=== PATIENT | female | born 1990 | race American Indian/Alaskan Native ===

== ENCOUNTER 2017-03-17 18:45 | Emergency (ER) | payer SELFPAY ==
[2017-03-17 19:51] VITALS: BP 111/79
[2017-03-17 22:11] LABS: Bilirubin,Urine NEG (Negative); Blood,Urine NEG (Negative); Ketones,Urine NEG (Negative); Leukocyte Esterase,Urine TR (Negative); Nitrite,Urine NEG (Negative); Protein,Urine <15 mg/dL mg/dL (Negative); Urobilinogen,Urine < 2.0 mg/dL (<2.0)
[2017-03-17 22:12] LABS: WBC,Urine < 1.0 /HPF (0.0-6.0)
== END 2017-03-17 20:35 | disposition left against medical advice (07) ==
LOC: ED 18:45
DX: R11.2 Nausea with vomiting, unspecified (principal); Z53.21 Procedure and treatment not carried out due to patient leaving prior to being seen by health care provider
CPT/HCPCS: 81001

== ENCOUNTER 2017-06-02 07:21 | Emergency (ER) | payer OTHER ==
[2017-06-02 08:11] LABS: Bacteria,Urine 1+ /HPF (Negative); Bilirubin,Urine NEG (Negative); Blood,Urine NEG (Negative); Ketones,Urine NEG (Negative); Leukocyte Esterase,Urine SM (Negative); Mucus,Urine FEW /HPF; Nitrite,Urine NEG (Negative); Protein,Urine <15 mg/dL mg/dL (Negative)
[2017-06-02 08:20] LABS: Basophils % (Auto) 0.5 % (0.0-1.8); Eosinophils % (Auto) 0.4 % (0.0-4.3); Hematocrit 35.4 % (30.3-42.9); Hemoglobin 12.3 gm/dl (10.1-14.3); Mean Corpuscular HGB Conc 35 % (30-34); Mean Corpuscular Hemoglobin 30 pg (28-32); Mean Corpuscular Volume 87 fl (79-97); Platelet Count 252 K/mm3 (140-440); Red Blood Count 4.08 M/mm3 (3.65-5.03); Red Cell Distribution Width 13.4 % (13.2-15.2); White Blood Count 6.6 K/mm3 (4.5-11.0)
[2017-06-02 08:41] LABS: Alanine Aminotransferase 8 units/L (7-56); Albumin 3.5 g/dL (3.9-5); Albumin/Globulin Ratio 1.3 %; Alkaline Phosphatase 39 units/L (35-129); Anion Gap 14 mmol/L; BUN/Creatinine Ratio 10; Blood Urea Nitrogen 5 mg/dL (7-17); Calcium 8.7 mg/dL (8.4-10.2); Carbon Dioxide 24 mmol/L (22-30); Chloride 101.9 mmol/L (98-107); Glucose 81 mg/dL (65-100); Lipase 17 units/L (13-60); Potassium 4.1 mmol/L (3.6-5.0); Sodium 136 mmol/L (137-145); Total Protein 6.2 g/dL (6.3-8.2)
--- NOTE | 2017-06-02 12:09 | Emergency Department Report ---
ED Abdominal Pain HPI - General Chief Complaint: Abdominal Pain Stated Complaint: , CRAMPS Time Seen by Provider: 06/02/17 12:02 Source: patient Mode of arrival: Ambulatory Limitations: No Limitations - History of Present Illness Initial Comments: Patient complains of lower abdominal discomfort. It appears to be in mild to moderate in intensity. It is intermittent. It into triage she complained of some epigastric pain and mostly pressure in her lower abdomen for a day. She denies epigastric pain to me now. I think this was very transient. She's had no nausea vomiting or diarrhea. She's had hyperemesis during this but this is largely resolved with medicines she tells me. She is under the care of an OB doctor at [facility]. She denies any recent fever or chills and had no diarrhea. She denies other symptoms. She has not notified her OB doctor of her symptoms as of yet. MD Complaint: abdominal pain -: Gradual, hour(s) Location: LLQ, RLQ Radiation: none Migration to: no migration Severity scale (0 -10): 5 Quality: aching Consistency: intermittent, now resolved Improves With: nothing Worsens With: nothing Associated Symptoms: denies other symptoms - Related Data Allergies Allergy/AdvReac Type Severity Reaction Status Date / Time No Known Allergies Allergy Verified 03/17/17 19:52 ED Review of Systems ROS: Stated complaint: , CRAMPS Other details as noted in HPI Constitutional: denies: chills, fever Eyes: denies: eye pain, eye discharge, vision change ENT: denies: ear pain, throat pain Respiratory: denies: cough, shortness of breath, wheezing Cardiovascular: denies: chest pain, palpitations Endocrine: no symptoms reported Gastrointestinal: abdominal pain. denies: nausea, diarrhea Genitourinary: denies: urgency, dysuria, discharge Musculoskeletal: denies: back pain, joint swelling, arthralgia Skin: denies: rash, lesions Neurological: denies: headache, weakness, paresthesias Psychiatric: denies: anxiety, depression Hematological/Lymphatic: denies: easy bleeding, easy bruising ED Past Medical Hx - Past Medical History Previous Medical History?: No Additional medical history: hyperemesis d/t - Surgical History Past Surgical History?: No - Social History Smoking Status: Never Smoker Substance Use Type: None ED Physical Exam - General Limitations: No Limitations General appearance: alert, in no apparent distress - Head Head exam: Present: atraumatic, normocephalic - Eye Eye exam: Present: normal appearance. Absent: scleral icterus - ENT ENT exam: Present: mucous membranes moist - Neck Neck exam: Present: normal inspection - Respiratory Respiratory exam: Present: normal lung sounds bilaterally. Absent: respiratory distress - Cardiovascular Cardiovascular Exam: Present: regular rate, normal rhythm. Absent: systolic murmur, diastolic murmur, rubs, gallop - GI/Abdominal GI/Abdominal exam: Present: soft, normal bowel sounds, other (uterus is consistent with dates). Absent: tenderness, guarding, rebound, rigid - Extremities Exam Extremities exam: Present: normal inspection - Back Exam Back exam: Present: normal inspection. Absent: CVA tenderness (R), CVA tenderness (L) - Neurological Exam Neurological exam: Present: alert, oriented X3, CN II-XII intact. Absent: motor sensory deficit - Psychiatric Psychiatric exam: Present: normal affect, normal mood - Skin Skin exam: Present: warm, dry, intact, normal color. Absent: rash ED Course Vital Signs 06/02/17 06/02/17 06/02/17 07:33 10:50 12:22 Temperature 98.6 F 98.9 F 98.4 F Pulse Rate 86 78 80 Respiratory 18 16 22 Rate Blood Pressure 96/65 Blood Pressure 96/65 101/62 120/66 [Left] O2 Sat by Pulse 98 94 100 Oximetry - Reevaluation(s) Reevaluation #1: Patient was comfortable here in the emergency department. She did not complain of any significant pain. She was counseled as to the results of her tests and ultrasound which are all reassuring. She is appropriate for follow-up with her OB doctor. Perhaps she is having some round ligament stretch but doesn't seem to be having any acute issue at this time. 06/02/17 16:08 ED Medical Decision Making - Lab Data Result diagrams: 06/02/17 08:06 06/02/17 08:06 Laboratory Results - last 24 hr 06/02/17 06/02/17 06/02/17 07:47 08:06 08:06 WBC 6.6 RBC 4.08 Hgb 12.3 Hct 35.4 MCV 87 MCH 30 MCHC 35 H RDW 13.4 Plt Count 252 Lymph % (Auto) 30.2 [place] % (Auto) 7.5 H Eos % (Auto) 0.4 Baso % (Auto) 0.5 Lymph # 2.0 [place] # 0.5 Eos # 0.0 Baso # 0.0 Seg Neutrophils % 61.4 Seg Neutrophils # 4.0 Sodium 136 L Potassium 4.1 Chloride 101.9 Carbon Dioxide 24 Anion Gap 14 BUN 5 L Creatinine 0.5 L Estimated GFR > 60 BUN/Creatinine Ratio 10 Glucose 81 Calcium 8.7 Total Bilirubin 0.30 AST 13 ALT 8 Alkaline Phosphatase 39 Total Protein 6.2 L Albumin 3.5 L Albumin/Globulin Ratio 1.3 Lipase 17 Urine Color Yellow Urine Turbidity Clear Urine pH 6.0 Ur Specific [place] 1.015 Urine Protein <15 mg/dl Urine Glucose (UA) Neg Urine Ketones Neg Urine Blood Neg Urine Nitrite Neg Urine Bilirubin Neg Urine Urobilinogen 2.0 Ur Leukocyte Esterase Sm Urine WBC (Auto) 3.0 Urine RBC (Auto) 1.0 U Epithel Cells (Auto) 11.0 Urine Bacteria (Auto) 1+ Urine Mucus Few - Radiology Data Radiology results: report reviewed interpreted by me: Ultrasound showed normal gestation consistent with gestational age and nothing acute Critical care attestation.: If time is entered above; I have spent that time in minutes in the direct care of this critically ill patient, excluding procedure time. ED Disposition Clinical Impression: 18 weeks gestation of , Lower abdominal pain Disposition: TO HOME OR SELFCARE Is pt being admited?: No Does the pt Need Aspirin: No Condition: Stable Instructions: Abdominal Pain (ED), (ED) Additional Instructions: Return if problems. Follow up with her OB doctor. Tylenol as needed for pain. Referrals: PRIMARY CARE,MD [Primary Care Provider] - 3-5 Days usual, single stroke preformer [Other] - 3-5 Days Time of Disposition: 16:10
[2017-06-02 12:23] VITALS: BP 120/66
--- NOTE | 2017-06-02 14:25 | Ultrasound Report ---
COMPLETE OB ULTRASOUND: Gestation: Sanchez Position: Cephalic Amniotic Fluid: WNL Placenta: Anterior Placental Grade: 0 Heart Rate: 150 BPM Cervical length: 4.9 cm (Normal > 3 cm) NEUROANATOMY VISUALIZED: Choroid Plexus Cisterna Magnum Cerebellum Lateral Ventricle ANATOMY VISUALIZED: Stomach Kidneys Bladder Diaphragm 4 Chamber Heart Heart 3 Vessel Cord Abd. Cord Insert SPINE VISUALIZED: Longitudinal Transverse The following are not demonstrated due to maternal body habitus or lie: AP spine BPD: 4.2 cm = 18 w 5 d HC: 15.2 cm = 18 w 1 d AC: 13.6 cm = 19 w 0 d FL: 2.7 cm = 18 w 1 d HC/AC Ratio: 1.12 Cephalic Index: 85.7 Estimated Weight: 246 grams Clinical age = 17 w 5 d EDC: 11/05/17 US Gest. Age = 18 w full d EDC: 10/30/17 Comment: Cephalic index is slightly above normal. No pathologic source of abdominal pain identified.
== END 2017-06-02 16:41 | disposition home or self-care (01) ==
LOC: ED 07:21
DX: O26.892 Other specified pregnancy related conditions, second trimester (principal); R10.30 Lower abdominal pain, unspecified; Z3A.18 18 weeks gestation of pregnancy
CPT/HCPCS: 36415; 76805; 80053; 81001; 83690; 85025